=== PATIENT | female | born 1955 | race Caucasian/White ===

== ENCOUNTER 2022-09-20 10:35 | Day surgery (SDC) | payer MEDICARE ==
[2022-09-19 14:28] VITALS: BMI 24.6
[~2022-09-20 10:35] MED LIST: Fluorouracil 100 MG, Enoxaparin 25 MG, EPINEPHrine 0.3 MG in Ophthalmic Irrigation Solu... IRR SCH; Midazolam HCl 2 mg/2 ml Vial ONE; fentaNYL 50 mcg/mL 1 mL Vial ONE
[2022-09-20] MEDS ORDERED: PHENYLephrine 2.5% Ophth Soln 15 ml Bottle ONE (11:12)
[2022-09-20] MEDS ORDERED: Cyclopentolate 0.5% Opth Drops 15 ML BOT ONE (11:12)
[2022-09-20] MEDS ORDERED: Bupivacaine 0.75% 10 ML VIAL ONE (14:07)
[2022-09-20] MEDS ORDERED: Lidocaine 4% PF 5 ML AMP ONE (14:07)
[2022-09-20] MEDS ORDERED: Maxitrol 0.1% Opth Oint 3.5 GM TUBE ONE (14:07)
[2022-09-20] MEDS ORDERED: PROPOFOL 200 MG/20 ML VIAL ONE (14:07)
[2022-09-20] MEDS ORDERED: Triamcinolone 40 MG/ML VIAL ONE (14:07)
== END 2022-09-20 15:40 | disposition home or self-care (01) ==
LOC: SDC 10:35
PROVIDERS: ATTEND Ophthalmology Retina Specialist
PROC: 08T43ZZ Resection of Right Vitreous, Percutaneous Approach (ICD-10-PCS; principal; 2022-09-20)
DX: H33.001 Unspecified retinal detachment with retinal break, right eye (principal)
CPT/HCPCS: 67025; 67108; J3010; J0171; J1650; J2250; J2704; J3301; J3490; J9190

== ENCOUNTER 2022-11-15 06:37 | Day surgery (SDC) | payer MEDICARE ==
[2022-11-14 12:46] VITALS: BMI 23.6
[~2022-11-15 06:37] MED LIST changes: -Midazolam HCl 2 mg/2 ml Vial ONE; -fentaNYL 50 mcg/mL 1 mL Vial ONE
[2022-11-15] MEDS ORDERED: Midazolam HCl 2 mg/2 ml Vial ONE (06:55)
[2022-11-15] MEDS ORDERED: fentaNYL 50 mcg/mL 1 mL Vial ONE (06:55)
[2022-11-15] MEDS ORDERED: Cyclopentolate 1% Opth Drop 2 ML BOT ONE (07:38)
[2022-11-15] MEDS ORDERED: PHENYLephrine 2.5% Ophth Soln 15 ml Bottle ONE (07:38)
[2022-11-15] MEDS ORDERED: Lidocaine 1% PF 5 ML VIAL ONE (09:07)
[2022-11-15] MEDS ORDERED: Triamcinolone 40 MG/ML VIAL ONE (09:07)
[2022-11-15] MEDS ORDERED: PROPOFOL 200 MG/20 ML VIAL ONE (09:07)
[2022-11-15] MEDS ORDERED: Lidocaine 4% PF 5 ML AMP ONE (09:07)
[2022-11-15] MEDS ORDERED: Maxitrol 0.1% Opth Oint 3.5 GM TUBE ONE (09:07)
[2022-11-15] MEDS ORDERED: CEFAZOLIN 1 GM VIAL ONE (09:07)
[2022-11-15] MEDS ORDERED: Bupivacaine 0.75% 10 ML VIAL ONE (09:07)
== END 2022-11-15 11:08 | disposition home or self-care (01) ==
LOC: SDC 06:37
PROVIDERS: ATTEND Ophthalmology Retina Specialist
PROC: 08T43ZZ Resection of Right Vitreous, Percutaneous Approach (ICD-10-PCS; principal; 2022-11-15)
DX: H33.021 Retinal detachment with multiple breaks, right eye (principal)
CPT/HCPCS: 67113; J3010; C1814; J0171; J0690; J1650; J2250; J2704; J3301; J3490; J9190